=== PATIENT | female | born 1965 | race Hispanic/Latino ===

== ENCOUNTER 2016-09-26 19:13 | Inpatient (IN) | payer MEDICARE ==
[2016-09-26 19:55] LABS: Basophils % (Auto) 0.5 % (0.0-1.8); Hematocrit 22.5 % (30.3-42.9); Hemoglobin 6.6 gm/dl (10.1-14.3); Mean Corpuscular HGB Conc 29 % (30-34); Mean Corpuscular Hemoglobin 21 pg (28-32); Mean Corpuscular Volume 71 fl (79-97); Platelet Count 318 K/mm3 (140-440); Red Blood Count 3.18 M/mm3 (3.65-5.03); Red Cell Distribution Width 18.5 % (13.2-15.2); White Blood Count 12.7 K/mm3 (4.5-11.0)
[2016-09-26 20:05] LABS: Calcium 8.5 mg/dL (8.4-10.2)
[2016-09-26] MEDS ORDERED: NACL 0.9% 500 ML 500 ML IV ONE (21:46)
[2016-09-26] MEDS ORDERED: MORPHINE IV ONE (22:17)
[2016-09-26] MEDS ORDERED: ZOFRAN IV ONE (22:18)
--- NOTE | 2016-09-26 23:04 | Emergency Department Report ---
ED Lower Extremity HPI - General Chief Complaint: Pain General Stated Complaint: RT AMPUTER PAIN Time Seen by Provider: 09/26/16 21:46 Source: patient, EMS Mode of arrival: Stretcher Limitations: Physical Limitation - History of Present Illness Initial Comments: 51-year-old female with past medical history of diabetes, end-stage renal disease presenting to the emergency department complaining of right lower extremity pain. 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 Today started having pain in the right lower extremity. Patient denies swelling of the extremity. Patient states the pain is constant dull ache that has no relaxing nor worsening factors. Pertinent negatives: Fever/chills, chest pain, shortness of breath, hemoptysis, chest pain, abdominal pain. -: Gradual Injury: Leg: Right Place: home Severity: severe Improves With: nothing Worsens With: nothing - Related Data Home Medications Medication Instructions Recorded Confirmed Last Taken Antiox #11/Om3/Dha/Epa/Lut/Jeremiah 1 cap PO QDAY 09/26/16 09/26/16 Unknown [50+ Adult Eye Health Softgel] Aspirin [Aspirin BABY CHEW TAB] 81 mg PO QDAY 09/26/16 09/26/16 Unknown AtorvaSTATin [Lipitor] 10 mg PO QDAY 09/26/16 09/26/16 Unknown Metoprolol Xl [Metoprolol 100 mg PO QDAY 09/26/16 09/26/16 Unknown SUCCINATE ER TAB] Mycophenolate [Cellcept] 250 mg PO BID 09/26/16 09/26/16 Unknown Pantoprazole [Protonix TAB] 40 mg PO QDAY 09/26/16 09/26/16 Unknown Paroxetine HCl [PARoxetine] 40 mg PO QDAY 09/26/16 09/26/16 Unknown Prednisone [predniSONE (Olena) ER 5 mg PO QDAY 09/26/16 09/26/16 Unknown TAB] Tacrolimus [Prograf] 2 mg PO BID 09/26/16 09/26/16 09/26/16 medroxyPROGESTERone ACETATE 1 vial IM Q90D 09/26/16 09/26/16 Unknown [Depo-Provera (Contraception)] Allergies Allergy/AdvReac Type Severity Reaction Status Date / Time hydromorphone HCl AdvReac Anaphylaxis Verified 09/26/16 19:53 [From Dilaudid] piperacillin sodium AdvReac Diarrhea Verified 09/26/16 19:50 [From Zosyn] tazobactam sodium AdvReac Diarrhea Verified 09/26/16 19:50 [From Zosyn] ED Review of Systems ROS: Stated complaint: RT AMPUTER PAIN Other details as noted in HPI Constitutional: denies: chills, fever Eyes: denies: eye pain, eye discharge, vision change ENT: denies: ear pain, throat pain Respiratory: denies: cough, shortness of breath, wheezing Cardiovascular: denies: chest pain, palpitations Endocrine: no symptoms reported Gastrointestinal: denies: abdominal pain, nausea, diarrhea Genitourinary: denies: urgency, dysuria, discharge Musculoskeletal: other (pain ). denies: back pain, joint swelling, arthralgia Skin: denies: rash, lesions Neurological: denies: headache, weakness, paresthesias Psychiatric: denies: anxiety, depression Hematological/Lymphatic: denies: easy bleeding, easy bruising ED Past Medical Hx - Past Medical History Previous Medical History?: Yes Additional medical history: Kidney Transplant 2005, Anemia, Right BKA, Blind in both eyes - Surgical History Past Surgical History?: Yes Additional Surgical History: BKA right leg, kidney transplant - Social History Smoking Status: Former Smoker Substance Use Type: None - Medications Home Medications: Home Medications Medication Instructions Recorded Confirmed Last Taken Type Antiox #11/Om3/Dha/Epa/Lut/Jeremiah 1 cap PO QDAY 09/26/16 09/26/16 Unknown History [50+ Adult Eye Health Softgel] Aspirin [Aspirin BABY CHEW TAB] 81 mg PO QDAY 09/26/16 09/26/16 Unknown History AtorvaSTATin [Lipitor] 10 mg PO QDAY 09/26/16 09/26/16 Unknown History Metoprolol Xl [Metoprolol 100 mg PO QDAY 09/26/16 09/26/16 Unknown History SUCCINATE ER TAB] Mycophenolate [Cellcept] 250 mg PO BID 09/26/16 09/26/16 Unknown History Pantoprazole [Protonix TAB] 40 mg PO QDAY 09/26/16 09/26/16 Unknown History Paroxetine HCl [PARoxetine] 40 mg PO QDAY 09/26/16 09/26/16 Unknown History Prednisone [predniSONE (Olena) ER 5 mg PO QDAY 09/26/16 09/26/16 Unknown History TAB] Tacrolimus [Prograf] 2 mg PO BID 09/26/16 09/26/16 09/26/16 History medroxyPROGESTERone ACETATE 1 vial IM Q90D 09/26/16 09/26/16 Unknown History [Depo-Provera (Contraception)] ED Physical Exam - General Limitations: Physical Limitation General appearance: alert, in no apparent distress - Head Head exam: Present: atraumatic, normocephalic - Eye Eye exam: Present: normal appearance - ENT ENT exam: Present: mucous membranes moist - Neck Neck exam: Present: normal inspection - Respiratory Respiratory exam: Present: normal lung sounds bilaterally. Absent: respiratory distress - Cardiovascular Cardiovascular Exam: Present: regular rate, normal rhythm. Absent: systolic murmur, diastolic murmur, rubs, gallop - GI/Abdominal GI/Abdominal exam: Present: soft, normal bowel sounds - Extremities Exam Extremities exam: Present: other (right lower extremity has well healed BKA, no evidence of cellulitis. No swelling nor palpable cords appreciated. ) - Back Exam Back exam: Present: normal inspection - Neurological Exam Neurological exam: Present: alert, oriented X3 - Psychiatric Psychiatric exam: Present: normal affect, normal mood - Skin Skin exam: Present: warm, dry, intact, normal color. Absent: rash ED Course Vital Signs 09/26/16 09/26/16 09/26/16 19:40 22:19 22:28 Temperature 98.6 F Pulse Rate 85 Respiratory 20 18 18 Rate Blood Pressure 150/62 Blood Pressure [Left] O2 Sat by Pulse 99 99 Oximetry 09/27/16 09/27/16 09/27/16 00:15 00:30 00:40 Temperature 98.6 F 98.7 F 98.7 F Pulse Rate 79 70 75 Respiratory 20 18 20 Rate Blood Pressure 141/61 130/67 Blood Pressure 145/59 [Left] O2 Sat by Pulse 96 97 97 Oximetry 09/27/16 00:54 Temperature 99 F Pulse Rate 74 Respiratory 18 Rate Blood Pressure 137/53 Blood Pressure [Left] O2 Sat by Pulse 100 Oximetry - Reevaluation(s) Reevaluation #1: 09/26/16 23:07 Patient states she has history of anemia and was supposed to get blood transfusion last month. Patient states anemia is caused by cervical polyp areas she denies vaginal bleeding within the last month. ED Lower Extremity MDM - Lab Data Result diagrams: 09/26/16 19:40 09/26/16 19:40 - EKG Data Rate: bradycardia - Medical Decision Making 51-year-old female with past medical history of BKA of the right lower extremity , hypertension, diabetes, end-stage renal disease presenting to the emergency department complaining of right lower extremity pain. At this time i am unsure of what this causes the pain is as our Department ahs no doppler ultrasound for the night. Given That I Will Admit Patient for Blood Transfusion Secondary to Anemia, I Have Relayed This Information to the Medical Team and Likely Ultrasound Right Lower Extremity Will Be Performed in the Morning. I Have Low Suspicion for Fracture as patient denies trauma. Differential for the Pain May Also Be Phantom Pains Given Her History of Diabetes and BKA. Patient Agrees to Admission. Dr. Brown Has Accepted Patient on Her Service. Critical Care Time: No Critical care attestation.: If time is entered above; I have spent that time in minutes in the direct care of this critically ill patient, excluding procedure time. ED Disposition Clinical Impression: Right leg pain, Anemia Disposition: -09 OP ADMIT IP TO THIS HOSP Is pt being admited?: Yes Does the pt Need Aspirin: No Condition: Stable
[2016-09-26] MEDS ORDERED: TYLENOL PO PRN (23:46)
[2016-09-26] MEDS ORDERED: BENADRYL IV ONE (23:46)
[2016-09-26] MEDS ORDERED: DULCOLAX PR PRN (23:47)
[2016-09-26] MEDS ORDERED: MILK OF MAGNESIA PO PRN (23:47)
[2016-09-26] MEDS ORDERED: PERCOCET 5/325 PO PRN (23:47)
[2016-09-26] MEDS ORDERED: ZOFRAN IV PRN (23:47)
--- NOTE | 2016-09-26 23:52 | History and Physical Report ---
History of Present Illness Date of examination: 09/26/16 History of present illness: 51-year-old woman with a history of hypertension, hyperlipidemia, transplanted kidney, right BKA, legally blind comes to the emergency room complaining of pain at the end of the stump of the BKA. Her renal doctors intermittently emergency room also for low hemoglobin. She complaining of generalized weakness , decreased energy, shortness of breath with activity. She had a colonoscopy one month ago, she was seen at [facility] and was told that anemia is secondary to bleeding of polyp on the cervix. Also complaining of left leg pain PAST SURGICAL HISTORY: Right BKA, pancreas and kidney transplant SOCIAL HISTORY: Denies alcohol, tobacco, drugs FAMILY HISTORY: Hypertension Medications and Allergies Allergies Allergy/AdvReac Type Severity Reaction Status Date / Time hydromorphone HCl AdvReac Anaphylaxis Verified 09/26/16 19:53 [From Dilaudid] piperacillin sodium AdvReac Diarrhea Verified 09/26/16 19:50 [From Zosyn] tazobactam sodium AdvReac Diarrhea Verified 09/26/16 19:50 [From Zosyn] Home Medications Medication Instructions Recorded Confirmed Last Taken Type Antiox #11/Om3/Dha/Epa/Lut/Jeremiah 1 cap PO QDAY 09/26/16 09/26/16 Unknown History [50+ Adult Eye Health Softgel] Aspirin [Aspirin BABY CHEW TAB] 81 mg PO QDAY 09/26/16 09/26/16 Unknown History AtorvaSTATin [Lipitor] 10 mg PO QDAY 09/26/16 09/26/16 Unknown History Metoprolol Xl [Metoprolol 100 mg PO QDAY 09/26/16 09/26/16 Unknown History SUCCINATE ER TAB] Mycophenolate [Cellcept] 250 mg PO BID 09/26/16 09/26/16 Unknown History Pantoprazole [Protonix TAB] 40 mg PO QDAY 09/26/16 09/26/16 Unknown History Paroxetine HCl [PARoxetine] 40 mg PO QDAY 09/26/16 09/26/16 Unknown History Prednisone [predniSONE (Olena) ER 5 mg PO QDAY 09/26/16 09/26/16 Unknown History TAB] Tacrolimus [Prograf] 2 mg PO BID 09/26/16 09/26/16 09/26/16 History medroxyPROGESTERone ACETATE 1 vial IM Q90D 09/26/16 09/26/16 Unknown History [Depo-Provera (Contraception)] Active Meds: Active Medications Acetaminophen (Tylenol) 650 mg PO Q4H PRN PRN Reason: Non Cardiac Pain or Temp>100.5 Bisacodyl (Dulcolax) 10 mg AK QDAY PRN PRN Reason: Constipation unrelieved by MOM Diphenhydramine HCl (Benadryl) 25 mg IV ONCE ONE Stop: 09/26/16 23:47 Magnesium Hydroxide (Milk Of Magnesia) 30 ml PO Q4H PRN PRN Reason: Constipation Ondansetron HCl (Zofran) 4 mg IV Q8H PRN PRN Reason: N/V unrelieved by Reglan Oxycodone/Acetaminophen (Percocet 5/325) 1 tab PO Q6H PRN PRN Reason: Pain, Moderate (4-6) Exam - Physical Exam Narrative exam: PGen. appearance: Patient lying in bed, no apparent distress HEENT: Normocephalic, atraumatic, pupils equally round and reactive to light, extraocular movement intact, and no sclericterus,. No JVD or thyromegaly or nodule,neck supple, no carotid bruit ,mucous membranes moist, no exudate or erythema Heart: S1, S2, regular rate and rhythm Lungs: Clear to auscultation bilaterally, breathing comfortable Abdomen: Positive bowel sounds, nontender, nondistended, no organomegaly Extremity: Right BKA, No edema, cyanosis, clubbing Skin: No rash, nodules, warm, dry Neuro: Oriented 3, cranial nerves II-12 intact, speech is fluent, motor and sensory intact - Constitutional Vitals: Temp Pulse Resp BP Pulse Ox 98.6 F 85 18 150/62 99 09/26/16 19:40 09/26/16 19:40 09/26/16 22:28 09/26/16 19:40 09/26/16 22:19 Results - Labs CBC & Chem 7: 09/27/16 03:46 09/27/16 03:46 Labs: Abnormal lab results 09/26/16 09/26/16 09/26/16 Range/Units 19:40 19:40 21:50 WBC 12.7 H (4.5-11.0) K/mm3 RBC 3.18 L (3.65-5.03) M/mm3 Hgb 6.6 L (10.1-14.3) gm/dl Hct 22.5 L (30.3-42.9) % MCV 71 L (79-97) fl MCH 21 L (28-32) pg MCHC 29 L (30-34) % RDW 18.5 H (13.2-15.2) % Lymph % (Auto) 4.9 L (13.4-35.0) % [place]ima % (Auto) 9.0 H (0.0-7.3) % Lymph # 0.6 L (1.2-5.4) K/mm3 [place]ima # 1.1 H (0.0-0.8) K/mm3 Seg Neutrophils % 85.6 H (40.0-70.0) % Seg Neutrophils # 10.8 H (1.8-7.7) K/mm3 Sodium 134 L (137-145) mmol/L Carbon Dioxide 18 L (22-30) mmol/L BUN 27 H (7-17) mg/dL Creatinine 1.5 H (0.7-1.2) mg/dL Crossmatch See Detail - Imaging and Cardiology EKG: image reviewed Assessment and Plan Left leg pain Symptomatic anemia Status post kidney and pancreas transplant Admit to medicine Check Doppler of the lower extremity Transfuse packed red blood cells, start DVT prophylaxis Continue outpatient medications
[2016-09-27] MEDS ORDERED: BENADRYL ONE (00:16)
--- NOTE | 2016-09-27 02:16 | Admit Criteria Form ---
Admission Criteria Documentation: PAIN MANAGEMENT GRG Clinical Indications for Admission to Inpatient Care (Place 'X' for any and all applicable criteria): Hospital admission is needed for appropriate care of the patient because of 1 or more of the following are present (1)(2)(3)(4)(5): [X ]I. Severe pain requiring acute inpatient management as indicated by 1 or more of the following (2)(5)(10): [X ]a) Continuous or frequent (eg, every 2 to 4 hours) parenteral analgesics required [A] [ ]b) Necessity (ie, alternative approaches not effective) for analgesic regimen that can only be performed or initiated in inpatient setting [ ]II. Pain causing debilitation to the point of inability to function or be supported at any other level of care [ ]III. Severe side effects from pain medications as indicated by ANY ONE of the following (12)(13)(14)(15): [ ]a) Uncontrollable seizures [ ]b) Cardiac arrhythmias of immediate concern [ ]c) Dehydration that is severe or persistent [ ]d) Vomiting that is severe or persistent [ ]e) Altered mental status that is severe or persistent [ ]f) Obstipation with inadequate GI function to maintain nutrition The original [employer] content created by [employer] has been revised. The portions of the content which have been revised are identified through the use of italic text or in bold, and [employer] has neither reviewed nor approved the modified material. All other unmodified content is copyright [employer]. Please see references footnoted in the original [employer] edition 2016 Admission Criteria Met: Yes
[2016-09-27 04:53] LABS: Basophils % (Auto) 0.3 % (0.0-1.8); Eosinophils % (Auto) 0.2 % (0.0-4.3); Hematocrit 27.6 % (30.3-42.9); Hemoglobin 8.4 gm/dl (10.1-14.3); Mean Corpuscular HGB Conc 31 % (30-34); Mean Corpuscular Volume 73 fl (79-97); Platelet Count 296 K/mm3 (140-440); Red Blood Count 3.77 M/mm3 (3.65-5.03); White Blood Count 9.6 K/mm3 (4.5-11.0)
[2016-09-27 05:04] LABS: Mean Corpuscular Hemoglobin 22 pg (28-32); Red Cell Distribution Width 20.3 % (13.2-15.2)
[2016-09-27 05:13] LABS: Creatine Kinase MB 1.1 ng/mL (0.0-4.0)
[2016-09-27 05:14] LABS: Calcium 8.4 mg/dL (8.4-10.2); Chloride 104.9 mmol/L (98-107); Potassium 3.7 mmol/L (3.6-5.0)
[2016-09-27 05:16] LABS: Creatine Kinase 160 units/L (30-135)
[2016-09-27 08:37] VITALS: BP 163/72
[2016-09-27 09:01] LABS: Creatine Kinase 136 units/L (30-135)
--- NOTE | 2016-09-27 09:19 | Progress Note ---
Assessment and Plan Assessment and plan: -Acute renal failure stage III-due to vasomotor nephropathy-nephrology consulted -Acute anemia-due to bleeding polyps-resolved. Patient received 2 units of packed red blood cells yesterday. We'll monitor Follow up labs -Acute Right limb pain- Doppler study ordered to rule out DVT and pending results, supportive care History Interval history: 51-year-old female patient was seen, examined today and medical records reviewed. Patient alert and oriented 3, denies chest pain, shortness of breath or any discomfort this time. Patient stated her new prosthesis have been irritating her leg and believes that is the cause of her right limb pain. Hospitalist Physical - Constitutional Vitals: Temp Pulse Resp BP Pulse Ox 99.2 F 72 19 163/72 96 09/27/16 07:00 09/27/16 07:00 09/27/16 07:00 09/27/16 07:00 09/27/16 08:17 Results - Labs CBC & Chem 7: 09/27/16 03:46 09/27/16 03:46 Labs: Laboratory Last Values WBC 9.6 K/mm3 (4.5-11.0) 09/27/16 03:46 RBC 3.77 M/mm3 (3.65-5.03) 09/27/16 03:46 Hgb 8.4 gm/dl (10.1-14.3) L 09/27/16 03:46 Hct 27.6 % (30.3-42.9) L 09/27/16 03:46 MCV 73 fl (79-97) L 09/27/16 03:46 MCH 22 pg (28-32) L 09/27/16 03:46 MCHC 31 % (30-34) 09/27/16 03:46 RDW 20.3 % (13.2-15.2) H 09/27/16 03:46 Plt Count 296 K/mm3 (140-440) 09/27/16 03:46 Lymph % (Auto) 8.7 % (13.4-35.0) L 09/27/16 03:46 Park % (Auto) 11.2 % (0.0-7.3) H 09/27/16 03:46 Eos % (Auto) 0.2 % (0.0-4.3) 09/27/16 03:46 Baso % (Auto) 0.3 % (0.0-1.8) 09/27/16 03:46 Lymph # 0.8 K/mm3 (1.2-5.4) L 09/27/16 03:46 Park # 1.1 K/mm3 (0.0-0.8) H 09/27/16 03:46 Eos # 0.0 K/mm3 (0.0-0.4) 09/27/16 03:46 Baso # 0.0 K/mm3 (0.0-0.1) 09/27/16 03:46 Seg Neutrophils % 79.6 % (40.0-70.0) H 09/27/16 03:46 Seg Neutrophils # 7.6 K/mm3 (1.8-7.7) 09/27/16 03:46 Sodium 139 mmol/L (137-145) 09/27/16 03:46 Potassium 3.7 mmol/L (3.6-5.0) 09/27/16 03:46 Chloride 104.9 mmol/L (98-107) 09/27/16 03:46 Carbon Dioxide 19 mmol/L (22-30) L 09/27/16 03:46 Anion Gap 19 mmol/L 09/27/16 03:46 BUN 24 mg/dL (7-17) H 09/27/16 03:46 Creatinine 1.5 mg/dL (0.7-1.2) H 09/27/16 03:46 Estimated GFR 37 ml/min 09/27/16 03:46 BUN/Creatinine Ratio 16.00 % 09/27/16 03:46 Glucose 92 mg/dL (65-100) 09/27/16 03:46 POC Glucose 101 (70-105) 09/26/16 20:54 Calcium 8.4 mg/dL (8.4-10.2) 09/27/16 03:46 Total Creatine Kinase 136 units/L (30-135) H 09/27/16 08:11 CK-MB (CK-2) 1.0 ng/mL (0.0-4.0) 09/27/16 08:11 CK-MB (CK-2) Rel Index 0.7 (0-4) 09/27/16 08:11 Troponin T < 0.010 ng/mL (0.00-0.029) 09/27/16 08:11 Blood Type A POSITIVE 09/26/16 21:50 Antibody Screen TNR 09/26/16 21:50 NAE Antibody Screen Negative 09/26/16 21:50 Crossmatch See Detail 09/26/16 21:50
[2016-09-27] MEDS ORDERED: CELLCEPT PO SCH (10:00)
[2016-09-27] MEDS ORDERED: TOPROL XL PO SCH (10:00)
[2016-09-27] MEDS ORDERED: EPA PO SCH (10:00)
[2016-09-27] MEDS ORDERED: [UNRECOGNIZED DRUG - OTHER] PO SCH (10:00)
[2016-09-27] MEDS ORDERED: ANTIOX PO SCH (10:00)
[2016-09-27] MEDS ORDERED: ZEA PO SCH (10:00)
[2016-09-27] MEDS ORDERED: NACL 0.9% 1000 ML 1,000 ML IV SCH (10:00)
[2016-09-27] MEDS ORDERED: DELTASONE PO SCH (10:00)
[2016-09-27] MEDS ORDERED: NON-FORMULARY (Paroxetine Hcl [Paroxetine] 40 MG) PO SCH (10:00)
[2016-09-27] MEDS ORDERED: BABY ASPIRIN PO SCH (10:00)
[2016-09-27] MEDS ORDERED: PROTONIX PO SCH (10:00)
[2016-09-27] MEDS ORDERED: PAXIL PO SCH (10:00)
[2016-09-27] MEDS ORDERED: NON-FORMULARY (Prednisone [Prednisone (Rayos) Er Tab] 5 MG) PO SCH (10:00)
[2016-09-27] MEDS ORDERED: DHA PO SCH (10:00)
[2016-09-27] MEDS ORDERED: PROGRAF PO SCH (10:00)
[2016-09-27] MEDS ORDERED: LUT PO SCH (10:00)
--- NOTE | 2016-09-27 12:23 | Discharge Summary ---
Providers - Providers Date of Admission: 09/26/16 23:47 Date of discharge: 09/27/16 Attending physician: CHICHO NIELSON MD 09/27/16 09:22 Consult to Physician [CONS] Routine Consulting Provider: ALBERT BROTHERS Reason For Exam: Renal Failure Place consult to:: Nephrology/ Notified:: office Phone number called:: [phone] Was contact made?: Yes If yes, spoke with:: shaq Time called:: 11:07 Primary care physician: GORDON MEDINA Hospitalization Reason for admission: right stump pain Condition: Stable Hospital course: 51-year-old woman with a history of hypertension, hyperlipidemia, transplanted kidney, right BKA, legally blind comes to the emergency room complaining of pain at the end of the stump of the BKA. She complaining of generalized weakness, decreased energy, shortness of breath with activity. She had a colonoscopy one month ago, she was seen at [facility] and was told that anemia is secondary to bleeding of polyp on the cervix. Also complaining of left leg pain. Patient was evaluated of 24 hours symptoms did improve she proceeded to have an ultrasound of the stump which did not reveal any DVT. The patient stated that she believes that her leg pain is secondary to a new prosthesis that she is recently started with since she has been here has been off the prosthesis she has felt much better. She did receive 2 units packed red blood cells. 4 anemia is to follow with GI outpatient. Her symptoms significantly improved is clinically stable at this point for discharge. We also recommended following with welcome hostess for closer monitoring. Discharge diagnosis -Acute renal failure stage III-due to vasomotor nephropathy -Status post renal transplant -Acute anemia -Hypertension -Acute Right limb pain -Gastric polyps -Status post Right BKA Disposition: [id number]/TX-[id number] HOME UNDER HOME [facility] Time spent for discharge: 35 mins Core Measure Documentation - Palliative Care Palliative Care/ Comfort Measures: Not Applicable - Core Measures Any of the following diagnoses?: none - VTE Discharge Requirements Deep Vein Thrombosis/Pulmonary Embolism Present on Admission: No Exam - Physical Exam Narrative exam: VITAL SIGNS: Reviewed. GENERAL: The patient appeared well nourished and normally developed. Vital signs as documented. HEAD: No signs of head trauma. EYES: Pupils are equal. Extraocular motions intact. EARS: Hearing grossly intact. MOUTH: Oropharynx is normal. NECK: No adenopathy, no JVD. CHEST: Chest with clear breath sounds bilaterally. No wheezes, rales, or rhonchi. CARDIAC: Regular rate and rhythm. S1 and S2, without murmurs, gallops, or rubs. VASCULAR: No Edema. Peripheral pulses normal and equal in all extremities. ABDOMEN: Soft, without detectable tenderness. No sign of distention. No rebound or guarding, and no masses palpated. Bowel Sounds normal. MUSCULOSKELETAL: Right BKA NEUROLOGIC EXAM: Alert and oriented x 3. No focal sensory or strength deficits. Speech normal. Follows commands. PSYCHIATRIC: Mood normal. SKIN: No rash or lesions. - Constitutional Vitals: Temp Pulse Resp BP Pulse Ox 99.2 F 72 19 163/72 96 09/27/16 07:00 09/27/16 07:00 09/27/16 07:00 09/27/16 10:39 09/27/16 08:17 Plan Activity: advance as tolerated, fall precautions Diet: regular Special Instructions: physical therapy Follow up with: GORDON MEDINA MD [Primary Care Provider] - 3-5 Days ALBERT BROTHERS MD [Staff Physician] - 7 Days PAVAN BYERS DO [Staff Physician] - 7 Days Prescriptions: Oxycodone HCl/Acetaminophen [Percocet 7.5/325 mg] 1 each PO Q6HR PRN #20 tablet PRN Reason: Pain
== END 2016-09-27 17:20 | disposition home health service (06) | DRG 555 ==
LOC: ED 19:13 → 3A 23:47
PROVIDERS: ADMIT Internal Medicine; ATTEND Internal Medicine
PROC: 30233N1 Transfusion of Nonautologous Red Blood Cells into Peripheral Vein, Percutaneous Approach (ICD-10-PCS; principal; 2016-09-26)
DX: M79.604 Pain in right leg (principal); N17.0 Acute kidney failure with tubular necrosis; N18.6 End stage renal disease; D62 Acute posthemorrhagic anemia; Z94.0 Kidney transplant status; E11.22 Type 2 diabetes mellitus with diabetic chronic kidney disease; H54.0 Blindness, both eyes; N84.1 Polyp of cervix uteri; Z88.8 Allergy status to other drugs, medicaments and biological substances; Z99.2 Dependence on renal dialysis; Z89.511 Acquired absence of right leg below knee; Z87.891 Personal history of nicotine dependence; Z82.49 Family history of ischemic heart disease and other diseases of the circulatory system
CPT/HCPCS: 36415; 80048; 82550; 82553; 82962; 84484; 85025; 86850; 86900; 86901; 86920; 93970; 96374; 96375; 99285; A9270-GY; J1200; J2270; J2405; J7040; J7507; J7512; J7517; P9016